=== PATIENT | female | born 1960 | race Caucasian/White ===

== ENCOUNTER 2018-07-05 19:57 | Emergency (ER) | payer SELFPAY ==
[~2018-07-05] VITALS: Ht 165.1 cm; Wt 75.7 kg
[2018-07-05] MEDS ORDERED: SERT50TA PO (21:00)
--- NOTE | 2018-07-05 21:04 | NUR ---
PT A/OX4, RESPONSIVE TO VERBAL AND TACTILE STIMULI. PT C/O ABD PAIN THAT STARTED TODAY, SHARP IN PAIN, DOES NOT RADIATE, 10/, CONSTANT. PT REPORTS DYSURIA. ER MD AT BEDSIDE.
[2018-07-05] MEDS ORDERED: LIDOCAINE 2% (UROJET) 10 ML JELLY MM ONE ×2 (21:15→21:17)
[2018-07-05] MEDS ORDERED: KETOROLAC TROMETHAMINE 30 MG INJ IM ONE (21:30)
[2018-07-05 21:38] LABS: *BILIRUBIN,URIN NEGATIVE (NEGATIVE); *BLOOD, URINE Trace-intact (NEGATIVE); *CLARITY,URINE CLEAR (CLEAR); *COLOR,URINE YELLOW (YELLOW); *KETONES,URINE NEGATIVE (NEGATIVE); *PROTEIN,URINE NEGATIVE (NEGATIVE); *UROBILINOGEN,URINE 0.2 E.U./dl (NORMAL); LEUKOCYTE ESTERASE ,URINE NEGATIVE (NEGATIVE); NITRITE, URINE NEGATIVE (NEGATIVE); PH,URINE 7.5 (5.0-8.0); UGLUCOSE NEGATIVE (NEGATIVE)
--- NOTE | 2018-07-05 21:47 | NUR ---
XRAY AT BEDSIDE.
[2018-07-05 21:53] LABS: BACTERIA,URINE NONE SEEN /HPF (NONE SEEN); SQUAMOUS EPITHELIAL CELL,UR FEW /HPF (NONE SEEN); URINE AMORPHOUS PHOSPHATES FEW /HPF; WBC,URINE 0-3 /HPF (0-3)
--- NOTE | 2018-07-05 23:07 | NUR ---
Patient discharged to home in stable conditon. Written and verbal after care instructions given. Patient verbalizes understanding of instructions. PT D/C HOME WITH PRESCRIPTION. PT SELF-AMBULATED WITHOUT DIFFICULTY. PT D/C HOME WITH MEDELLIN CATH AND LEG BAG PER MD ORDERS. ALL BELONGINGS W/ PT.
[2018-07-05 23:08] VITALS: BP 133/75
== END 2018-07-05 23:11 | disposition home or self-care (01) ==
LOC: ER 20:01
DX: K56.41 Fecal impaction (principal); R33.9 Retention of urine, unspecified; Z88.6 Allergy status to analgesic agent
CPT/HCPCS: 74021; A4663

== ENCOUNTER 2018-07-06 16:54 | Emergency (ER) | payer SELFPAY ==
[~2018-07-06] VITALS: Ht 165.1 cm; Wt 75.7 kg
[~2018-07-06 16:54] MED LIST: SERT50TA PO
--- NOTE | 2018-07-06 17:10 | NUR ---
Dr Carroll at the bedside for MSE.
--- NOTE | 2018-07-06 17:23 | NUR ---
F/C removed per MD order, pt tolorated well.
--- NOTE | 2018-07-06 17:45 | NUR ---
Pt able to urinate w/o difficulty after F/C removal.
[2018-07-06 17:46] VITALS: BP 115/76
--- NOTE | 2018-07-06 17:49 | NUR ---
Patient discharged to home in stable conditon. Written and verbal after care instructions given. Patient verbalizes understanding of instructions.
== END 2018-07-06 17:55 | disposition home or self-care (01) ==
LOC: ER 17:01
DX: Z46.6 Encounter for fitting and adjustment of urinary device (principal); Z88.6 Allergy status to analgesic agent
CPT/HCPCS: 99281; A4663

== ENCOUNTER 2019-03-20 16:50 | Emergency (ER) | payer OTHER ==
[~2019-03-20] VITALS: Ht 165.1 cm; Wt 77.6 kg
--- NOTE | 2019-03-20 17:20 | NUR ---
Dr Gold is at bedside doing the MSE.
--- NOTE | 2019-03-20 18:57 | NUR ---
Patient discharged to home in stable conditon & steady gait. Written and verbal after care instructions given to patient. Patient verbalizes understanding of instructions.
== END 2019-03-20 18:58 | disposition home or self-care (01) ==
LOC: ER 16:52
DX: I80.01 Phlebitis and thrombophlebitis of superficial vessels of right lower extremity (principal); Z88.6 Allergy status to analgesic agent; Z79.899 Other long term (current) drug therapy
CPT/HCPCS: A4663